=== PATIENT | female | born 1995 | race Caucasian/White ===

== ENCOUNTER 2022-02-18 19:24 | Emergency (ER) | payer BC ==
[~2022-02-18] VITALS: Ht 157.5 cm; Wt 52.2 kg
[2022-02-18 19:30] VITALS: BP 104/66
[2022-02-18] MEDS: BACI/NEOM/POLY B OINT PKT 1 UDPKT PACKET TP ONE (20:08)
--- NOTE | 2022-02-18 20:11 | NUR ---
Patient discharged to home in stable condition. Written and verbal after care instructions given. Patient verbalizes understanding of instruction.
== END 2022-02-18 20:12 | disposition home or self-care (01) ==
LOC: ER 19:27
DX: O9A.212 Injury, poisoning and certain other consequences of external causes complicating pregnancy, second trimester (principal); T21.22XA Burn of second degree of abdominal wall, initial encounter; Z3A.17 17 weeks gestation of pregnancy; X19.XXXA Contact with other heat and hot substances, initial encounter; Y93.89 Activity, other specified; Y92.89 Other specified places as the place of occurrence of the external cause; Y99.8 Other external cause status